=== PATIENT | male | born 1955 | race Caucasian/White ===

== ENCOUNTER → 2019-11-05 10:50 | Outpatient (BNVA) | payer MEDICARE, MEDICAID, SELFPAY | PROVIDERS: Visit Provider Registered Nurse | DX: M54.5 Low back pain (principal); G89.29 Other chronic pain; J30.1 Allergic rhinitis due to pollen; Z79.1 Long term (current) use of non-steroidal anti-inflammatories (NSAID); I10 Essential (primary) hypertension | CPT/HCPCS: 80053; 85025 ==

== ENCOUNTER → 2020-10-06 11:01 | Outpatient (BNVA) | payer MEDICARE, MEDICAID, SELFPAY | PROVIDERS: PCP Registered Nurse; Visit Provider Registered Nurse | DX: M54.5 Low back pain (principal); G89.29 Other chronic pain; F41.8 Other specified anxiety disorders; I10 Essential (primary) hypertension; J30.1 Allergic rhinitis due to pollen; E78.5 Hyperlipidemia, unspecified | CPT/HCPCS: 80053; 80061; 85025 ==

== ENCOUNTER → 2021-10-17 10:35 | Outpatient (BNVA) | payer MEDICARE, MEDICAID, SELFPAY | PROVIDERS: PCP Registered Nurse; Visit Provider Registered Nurse | DX: I10 Essential (primary) hypertension (principal); G40.909 Epilepsy, unspecified, not intractable, without status epilepticus; G89.29 Other chronic pain; F41.8 Other specified anxiety disorders; J30.1 Allergic rhinitis due to pollen; F17.210 Nicotine dependence, cigarettes, uncomplicated; J30.2 Other seasonal allergic rhinitis; Z53.20 Procedure and treatment not carried out because of patient's decision for unspecified reasons; E63.9 Nutritional deficiency, unspecified; Z71.3 Dietary counseling and surveillance | CPT/HCPCS: 80053; 80061; 85025 ==

== ENCOUNTER → 2023-04-10 10:16 | Outpatient (BNVA) | payer MEDICARE, MEDICAID, SELFPAY | PROVIDERS: PCP Registered Nurse; Visit Provider Registered Nurse | DX: L81.9 Disorder of pigmentation, unspecified (principal) | CPT/HCPCS: 88304 ==

== ENCOUNTER → 2023-05-09 10:01 | Outpatient (BNVA) | payer MEDICARE, MEDICAID, SELFPAY | PROVIDERS: PCP Registered Nurse; Visit Provider Registered Nurse | DX: E46 Unspecified protein-calorie malnutrition (principal) | CPT/HCPCS: 80053 ==

== ENCOUNTER → 2023-05-14 10:12 | Outpatient (BNVA) | payer MEDICARE, MEDICAID, SELFPAY | PROVIDERS: PCP Registered Nurse; Visit Provider Registered Nurse | DX: R73.09 Other abnormal glucose (principal); R73.9 Hyperglycemia, unspecified | CPT/HCPCS: 83036 ==

== ENCOUNTER 2023-06-30 00:21 | Emergency (ER) | payer MEDICARE, MEDICAID, SELFPAY ==
[2023-06-30 00:34] VITALS: BP 174/94; PULSE 74; RESP 16; O2SAT 98; BMI 12.7
--- NOTE | 2023-06-30 00:55 | ED_ITS ---
HPI - Male Genitourinary General: Chief complaint: Urogenital-Male Stated complaint: GROIN PAIN Time Seen by Provider: 06/30/23 00:34 Source: patient Mode of arrival: ambulatory Limitations: no limitations History of Present Illness: 67-year-old male states he has had a lef t inguinal hernia for years he states that it has been out today has not been able to reduce it is causing pain he states pain sharp in nature in his left groin rates the pain a 5 out of 10 denies any worsening proving factors denies any vomiting. Associated symptoms: Deny dysuria, nausea or vomiting Review of Systems Const: Denies: fever(s), chills, body aches or change in appetite ENMT: Denies: throat pain or dental pain Card: Denies: chest pain Resp: Denies: dyspnea GI: Reports: abdominal pain; Denies: nausea, vomiting or diarrhea : Denies: dysuria Musc: Denies: neck pain or back pain Skin/Breast: Denies: rash Neuro: Denies: headache(s) PFSH ED PFSH: Medical History Seizure disorder Seasonal allergies Depression with anxiety Essential hypertension Chronic lower back pain Social History Smoking and tobacco/nicotine status: current every day tobacco/nicotine user cigarettes Packs smoked per day: 1 Alcohol intake: never Substance/Drug Use: never Adopted: No Caregiver/support person: No Lives independently: Yes Do you think of yourself as: Straight/Heterosexual Current gender identity: Male Physical Exam Const: COMMON NORMALS: no acute distress, patient oriented x3 and healthy appearing HENMT: COMMON NORMALS: normocephalic and atraumatic HEAD & SCALP: normocephalic and atraumatic Neck/C-Spine: COMMON NORMALS: full ROM and supple Chest: COMMONS NORMALS: normal inspection of the chest Resp: COMMON NORMALS: normal respiratory effort Cardio: COMMON NORMALS: regular rate, regular rhythm and No murmurs present (Cardio) RATE: regular rate RHYTHM: regular rhythm GI: COMMON NORMALS: Normal to inspection, nondistended, normoactive bowel sounds present and Soft to palpation PALPATION: Yes Soft to palpation OTHER: Hernia noted to the left inguinal canal is tender to touch Extremity: COMMON NORMALS: normal to inspection and full ROM Neuro: COMMON NORMALS: patient oriented x3, moves all extremities and no focal motor deficits Psych: COMMON NORMALS: mental status grossly normal, Normal thought process present and cooperative THOUGHT PROCESS: Normal thought process present Skin: COMMON NORMALS: no rashes or lesions noted and no wounds GENERAL SKIN EXAM: no rashes or lesions noted Course Vital Signs: Vital signs: Vital Signs Temperature 97.6 F 06/30/23 01:18 Pulse Rate 78 06/30/23 01:18 Respiratory Rate 18 06/30/23 01:18 Blood Pressure 177/82 06/30/23 01:18 Pulse Oximetry 96 06/30/23 01:18 Oxygen Delivery Me thod Room Air 06/30/23 01:18 MDM - Male Medical Decision Making Patient presents with left inguinal hernia I was able to successfully reduce the hernia his pain is much improved we will get him follow-up with surgery he is stable for discharge. Medical Records I reviewed the patient's medical records. No radiology studies performed this visit Discharge Plan Discharge Patient Disposition: Home Clinical Impression: Inguinal hernia Qualifiers: Obstruction and gangrene presence: without obstruction or gangrene Laterality: unilateral Recurrence: recurrent Qualified Code(s): K40.91 - Unilateral inguinal hernia, without obstruction or gangrene, recurrent Condition: Stable Prescriptions: No Action mupirocin 2 % ointment 1 applic topical BID 10 Days Qty: 22 0RF levetiracetam [Keppra] 750 mg tablet 750 mg PO BID 30 Days Qty: 60 11RF cyclobenzaprine 5 mg tablet See Rx Instructions .ROUTE .COMPLEX Qty: 30 0RF Dose Instruction: TAKE 1 TO 2 TABLETS BY MOUTH AT BEDTIME NEEDED FOR MUSCLE SPASM Rx Instructions: TAKE 1 TO 2 TABLETS BY MOUTH AT BEDTIME NEEDED FOR MUSCLE SPASM montelukast 10 mg tablet See Rx Instructions .ROUTE .COMPLEX Qty: 90 0RF Dose Instruction: TAKE 1 TABLET BY MOUTH DAILY Rx Instructions: TAKE 1 TABLET BY MOUTH DAILY mirtazapine 45 mg tablet See Rx Instructions .ROUTE .COMPLEX Qty: 90 0RF Dose Instruction: TAKE 1 TABLET BY MOUTH DAILY Rx Instructions: TAKE 1 TABLET BY MOUTH DAILY propranolol 80 mg tablet See Rx Instructions .ROUTE .COMPLEX Qty: 180 0RF Dose Instruction: TAKE 1 TABLET BY MOUTH TWICE DAILY Rx Instructions: TAKE 1 TABLET BY MOUTH TWICE DAILY albuterol sulfate 90 mcg/actuation HFA aerosol inhaler See Rx Instructions .ROUTE .COMPLEX Qty: 8.5 0RF Dose Instruction: INHALE 1 PUFF BY MOUTH FOUR TIMES DAILY Rx Instructions: INHALE 1 PUFF BY MOUTH FOUR TIMES DAILY meloxicam 7.5 mg tablet See Rx Instructions .ROUTE .COMPLEX Qty: 180 0RF Dose Instruction: TAKE 1 TABLET BY MOUTH TWICE DAILY NEEDED FOR PAIN Rx Instructions: TAKE 1 TABLET BY MOUTH TWICE DAILY NEEDED FOR PAIN Discharge Orders: Discharge ED (Routine); Ordered 06/30/23 Ordered By: Estefania Alba Referrals: Jalen Leonard MD [Physician] - 1-3 days Farhad Blanchard FNP [Primary Care Provider] - Discharge Diet: Advance as tolerated Discharge Activity: Resume usual activity Patient Instructions: Inguinal Hernia (ED) Coding Level of Care Code ED Intern Architect for Kayleigh Canales
[2023-06-30] MEDS: LORazepam 2 mg/mL INJ 10 mL MDV 1 MG IVP (01:14)
[2023-06-30 01:17] VITALS: RESP 18; O2SAT 96
[2023-06-30] MEDS: morphine 4 mg/mL SDV 1 mL IVP (01:17)
[2023-06-30 01:18] VITALS: BP 177/82; PULSE 78; RESP 18; TEMP 36.4; O2SAT 96
[2023-06-30 01:52] VITALS: BP 161/89; PULSE 91; RESP 18; O2SAT 94
--- NOTE | 2023-07-04 11:12 | DCPLANNER ---
Message sent to General surgery for a follow up on a inguinal hernia.
== END 2023-06-30 01:55 | disposition home or self-care (01) ==
PROVIDERS: Emergency Provider Emergency Medicine; PCP Registered Nurse
DX: K40.91 Unilateral inguinal hernia, without obstruction or gangrene, recurrent (principal); I10 Essential (primary) hypertension; Z72.0 Tobacco use
CPT/HCPCS: 96374; 96375; 99284; J2060; J2270

== ENCOUNTER → 2023-07-11 11:14 | Outpatient (BNVA) | payer MEDICARE, SELFPAY | PROVIDERS: PCP Registered Nurse; Visit Provider Registered Nurse | DX: E63.9 Nutritional deficiency, unspecified (principal); J18.9 Pneumonia, unspecified organism; R91.1 Solitary pulmonary nodule; Z09 Encounter for follow-up examination after completed treatment for conditions other than malignant neoplasm; E46 Unspecified protein-calorie malnutrition; F17.210 Nicotine dependence, cigarettes, uncomplicated; K40.90 Unilateral inguinal hernia, without obstruction or gangrene, not specified as recurrent; K56.600 Partial intestinal obstruction, unspecified as to cause | CPT/HCPCS: 80053; 85025 ==

== ENCOUNTER → 2023-07-19 09:43 | Outpatient (BNVA) | payer MEDICARE, MEDICAID, SELFPAY | PROVIDERS: PCP Registered Nurse; Referring Provider Emergency Medicine; Visit Provider Surgery | DX: K40.20 Bilateral inguinal hernia, without obstruction or gangrene, not specified as recurrent (principal) | CPT/HCPCS: 99204 ==

== ENCOUNTER 2023-07-25 12:44 | Outpatient (CLI) | payer MEDICARE, MEDICAID, SELFPAY ==
--- NOTE | 2023-07-25 13:00 | CT_ITS ---
WS: [id number] CT chest w con* [id number] HISTORY: J18.9 - Pneumonia, unspecified organism TECHNIQUE: Axial imaging performed through the thorax. Coronal and sagittal reformats are submitted. All CT scans at [facility] use at least one of these dose optimization techniques: automated exposure control; mA and/or kV adjustment per patient size (includes targeted exams where dose is mat ched to clinical indication); or iterative reconstruction. CONTRAST: Omnipaque 350; 100 mL IV. DLP: 216.50 mGy.cm COMPARISON: None available. Lungs and central airway: Severe pulmonary hyperinflation. Centrilobular and paraseptal emphysema. Ir regular opacifications are noted in the upper lung serrano. There is some distortion of the tissues an d groundglass attenuation in the upper lobes. Although no discrete mass additional evaluation will be necessary. There is mild pleural thickening along the superior RIGHT major fissure. Focal linear sca r medial RIGHT lower lobe. Pleura: Normal. No pleural effusion. Heart and pericardium: Normal size heart with no pericardial effusion. Mediastinum and siomara: Very mildly prominent lymphoid tissue. No adenopathy. Vessels: Ectatic thoracic aorta. Mild ectasia at 3.1 cm. No aneurysm. Normal sized pulmonary artery. Chest wall and lower neck: Patient is cachectic. Very little body fat. Upper abdomen: Moderate suprarenal aortic calcification. There are several low-attenuation masses wit hin the liver consistent with cysts. No solid mass and no bile duct dilatation. Osseous structures: No destructive process. IMPRESSION: 1. Severe emphysema. 2. Bilateral upper lobe areas of groundglass attenuation with scarring and irregular opacifications. Pulmonary findings may all be related to patient's chronic lung disease and long-term scarring. Pranav y neoplastic changes should be considered. Recommend follow-up chest CT in 3 to 4 months. 3. No adenopathy identified. There are a few small mediastinal and hilar lymph nodes which are not e nlarged. 4. Mild ectatic thoracic aorta. 5. Hepatic cyst. 6. No adrenal mass.
[2023-07-25] MEDS: iohexol 350 mg/mL 500 mL Btl (per mL) IV (13:23)
== END 2023-07-25 12:45 | disposition home or self-care (01) ==
LOC: RAD 12:45
PROVIDERS: PCP Registered Nurse; Visit Provider Registered Nurse
DX: J18.9 Pneumonia, unspecified organism (principal); R91.1 Solitary pulmonary nodule; J43.2 Centrilobular emphysema; R91.8 Other nonspecific abnormal finding of lung field; I77.810 Thoracic aortic ectasia; K40.20 Bilateral inguinal hernia, without obstruction or gangrene, not specified as recurrent; F17.210 Nicotine dependence, cigarettes, uncomplicated
CPT/HCPCS: 71260; 99204; Q9967

== ENCOUNTER → 2023-08-03 10:13 | Outpatient (BNVA) | payer MEDICARE, MEDICAID, SELFPAY | PROVIDERS: PCP Registered Nurse; Visit Provider Family Medicine | DX: Z01.818 Encounter for other preprocedural examination (principal); Z79.899 Other long term (current) drug therapy | CPT/HCPCS: 80053; 84134; 85025 ==

== ENCOUNTER 2023-08-20 06:16 | Day surgery (SDC) | payer MEDICARE, MEDICAID, SELFPAY ==
[2023-08-20] VITALS (14 sets, daily range): BP systolic 140–181; BP diastolic 72–99; PULSE 67–95; RESP 15–22; TEMP 36.2–36.6; O2SAT 96–100; BMI 13.3
--- NOTE | 2023-08-20 06:46 | ECG_ITS ---
[facility] Test Date: 2023-08-20 Pat Name: Frank Britton Department: Room: Gender: Male Guest Service Supervisor: : 1955 Requested By: Jalen Dacosta Order Number: [id number] Kervin MD: Dharmesh Wong M.D. Measurements Intervals [place] Rate: 65 P: 84 [place]: 137 QRS: 72 QRSD: 106 T: 77 QT: 379 QTc: 395 Interpretive Statements SINUS RHYTHM No previous ECG available for comparison Electronically Signed On 08-20-2023 14:23:46 CDT by Dharmesh Wong M.D. [id number]
[2023-08-20] MEDS: sodium chloride 0.9% 1,000 ML 30 ML IV (06:51)
--- NOTE | 2023-08-20 06:58 | P.HPUD_ITS ---
Surgery/Procedure H&P Update DATE OF PROCEDURE: August 20, 2023 DATE H&P PERFORMED: 07/25/23 H&P UPDATE INFORMATION: I have reviewed H&P completed within last 30 days, I have examined patient prior to procedure, No changes to prior documentation and [place] [facility] [place] indicated PREOP DIAGNOSIS: Bilateral inguinal hernia PLANNED PROCEDURE: Operation Date: 08/20/23 08:05 Proposed Procedures p 34389 x2 lap repair of bilaeral inguinal hernia with mesh K40.20, possible open(Bilateral) - Jalen Leonard MD
[2023-08-20] MEDS: vancomycin 1,000 MG in sodium chloride 0.9% 250 ML 200 MG IV (07:32)
--- NOTE | 2023-08-20 07:59 | ANES.PREANE2 ---
Pre-Anesthetic Assessment Height/Weight: Height 1.78 m Weight 42.184 kg Temp Pulse Resp BP Pulse Ox O2 Del Method 97.2 F L 67 18 145/91 100 Room Air 08/20/23 06:37 08/20/23 06:37 08/20/23 06:37 08/20/23 06:37 08/20/23 06:37 08/20/23 06:37 Preop Diagnosis: Bilateral inguinal hernia Operation Date: 08/20/23 08:05 Proposed Procedures p 95778 x2 lap repair of bilaeral inguinal hernia with mesh K40.20, possible open(Bilateral) - Jalen Leonard MD Familial anesthetic complications: None Was Beta Domi taken within 24 hours: Yes Was Clonidine taken within 24 hours: N/A Last intake: Intake Last Liquid Date 08/19/23 Last Liquid Time 20:30 Last Solid Date 08/19/23 Last Solid Time 20:00 Social Tobacco and No alcohol encouraged smoking cessation and f/u w/ PCP for further guidance Exam alert, oriented x 3, clear to auscultation bilaterally and regular rate & rhythm Airway Mallampati: Class III Dentition: full Comments: Comments: small mouth opening, full singh Pulmonary Chronic Obstructive Pulmonary Disease (emphysema) CV/HEM Hypertension [facility] [place] underweight Neuropsych Seizure (keppra) subdural hemotoma 2014 resolved Anesthetic Plan ASA status: 3 Anesthesia: General Risk of > 500 ml blood loss (7ml/kg in children): No Medications/Allergies Home Medications Medication Instructions Recorded Confirmed Last Taken Type levetiracetam 750 mg tablet 750 mg PO BID 30 days #60 tabs 10/17/21 08/17/23 08/20/23 05:30 Rx (Keppra) albuterol sulfate 90 mcg/actuation 1 puff inhalation QID 08/17/23 08/17/23 08/19/23 History aerosol inhaler meloxicam 7.5 mg tablet 7.5 mg PO BID PRN Pain 08/17/23 08/17/23 08/19/23 History mirtazapine 45 mg tablet 45 mg PO DAILY 08/17/23 08/17/23 08/19/23 History montelukast 10 mg tablet 10 mg PO DAILY 08/17/23 08/17/23 08/19/23 History (Singulair) propranolol 80 mg tablet 80 mg PO BID 08/17/23 08/17/23 08/20/23 05:30 History cyclobenzaprine 5 mg tablet 5 - 10 mg PO BEDTIME PRN Spasms 08/20/23 08/20/23 08/16/23 History Allergies Allergy/AdvReac Type Severity Reaction Status Date / Time chocolate flavor Allergy Unknown Verified 08/17/23 11:56 Penicillins Allergy Unknown Verified 08/17/23 11:56 Current Medications Generic Name Dose Route Start Last Admin Trade Name Freq PRN Reason Stop Dose Admin Sodium Chloride 1,000 mls @ 30 mls/hr 08/20/23 06:30 08/20/23 06:51 Sodium Chloride 0.9% IV 08/21/23 06:29 30 mls/hr .Q24H GENIE Administration PFSH Anesthesia Medical History History of subdural hematoma on Keppra Seizure disorder Seasonal allergies Depression with anxiety Essential hypertension Chronic lower back pain Social History Smoking and tobacco/nicotine status: current every day tobacco/nicotine user cigarettes Packs smoked per day: 1 Alcohol intake: never Substance/Drug Use: never Adopted: No Caregiver/support person: No Lives independently: Yes Do you think of yourself as: Straight/Heterosexual Current gender identity: Male Data Anesthesia Cardiac Studies: No Data to Display
--- NOTE | 2023-08-20 10:22 | P.OP_ITS ---
Operative Report Date of procedure: August 20, 2023 Pre-op diagnosis: Bilateral inguinal hernias Post-op diagnosis: Bilateral direct and indirect inguinal hernias Post-op findings: On the left side there was a large left indirect inguinal hernia, there was also a right inguinal hernia containing a small amount of fat and peritoneal. On the right side there was a small indirect inguinal hernia and there was a fat- containing direct inguinal hernia. Procedure done: Laparoscopic bilateral inguinal hernia repair with mesh Implants: Bard 3D max left and right mesh Specimens removed/disposition: none Surgeon: Jalen Leonard MD Fire Extinguisher Installer: DANYELL OR Staff Estimated blood loss: 5 Complications: None apparent Brief History: 67-year-old male who presented to my clinic complaining of bilateral inguinal hernias after discussion of all risk benefits we decided to proceed with laparoscopic and possible open repair. Procedure: Patient was brought into the OR. She was placed in a supine position. General esthesia was given. Gamez catheter was inserted. The abdomen was prepped and draped in the usual sterile fashion and timeout was conducted. I then made a 1.5 cm infraumbilical incision, the incision was deepened into the subcutaneous tissue with electrocautery and the anterior rectus sheath was exposed. The anterior rectus sheath on the right side was then opened with electrocautery, the rectus muscle was retracted laterally exposing the retrorectus space. I then proceeded to slide a Spacemaker into the retrorectus space, the Spacemaker was advanced carefully to the level of the pubic bone. Under direct visualization the Spacemaker balloon was inflated developing the peritoneal space bilaterally. the Spacemaker was removed and a 2 mm balloon trocar was placed. Low pressure and low flow insufflation was initiated, additional 5 mm trocars were placed under direct visualization in the suprapubic and infraumbilical positions. I then proceeded to focus on the left inguinal region. I dissected the Aiden ligament from the midline all the way down to the femoral space, I then proceeded to bluntly dissect the lateral the space of Borgess. Once the dissection was clear I then proceeded to evaluate the direct and indirect space, there was a direct inguinal hernia, the hernia was reduced. I then proceeded to evaluate the indirect space there was a large indirect hernia, I carefully reduced the hernia sac with blunt dissection taking careful consideration of preserving the vas deferens and the testicular vessels. Once the peritoneum was reduced I was able to pull down the peritoneum about 4 to 5 cm from the internal ring. A medium size left-sided Bard 3D max mesh was then placed covering the femoral direct and indirect spaces and it was fixed to the Aiden's ligament with a single absorbable tack. I then proceeded to dissect the right side, I initiated by clearing the Aiden's ligament up to the femoral space, no femoral hernia was encountered, I then developed a lateral space Borgess, once the space was developed I proceeded to evaluate the indirect and direct space. There was a fat-containing direct inguinal hernia that was easily reduced. I then proceeded to dissect the indirect space there was a small indirect hernia, this was dissected from the testicular vessels and vas deferens and reduced. I was able to reduce the peritoneum about 5 cm from the internal ring. I then placed a medium size right-sided mesh, the mesh was placed covering the femoral direct and indirect spaces and was fixed to the Aiden's ligament with a single absorbable tacker. The preperitoneal space was then deflated on the radial sterilization ensuring that the mesh will lie in an appropriate fashion. The trocars were removed. The anterior rectus sheath was closed with #0 Vicryl. Hemostasis was verified. The wounds were closed in layers using #3-0 Vicryl for the subcutaneous tissue and #4 Monocryl for the skin. Dermabond was applied. At the end of the procedure all counts were correct. The patient tolerated well the procedure and was transferred to PACU in stable condition. Gamez catheter was removed before the patient was awakened.
[2023-08-20] MEDS: oxyCODONE 5 mg IR Tab/Cap PO (11:37)
--- NOTE | 2023-08-20 13:00 | ANE.PACU2 ---
Inpatient post-anesthesia follow up: Airway intact: Yes Vital signs: Temperature 98 F Pulse Rate 74 Respiratory Rate 18 Blood Pressure 154/83 Pulse Oximetry 99 Oxygen Delivery Me thod Room Air Oxygen Flow Rate 6 Fraction of Inspir ed Oxygen Hydration adequate: Yes Nausea and vomiting: No Pain level: 1 Mental status: Baseline
== END 2023-08-20 13:00 | disposition home or self-care (01) ==
PROVIDERS: PCP Registered Nurse; Visit Provider Surgery
PROC: (CPT 49650; principal; 2023-08-20 07:55)
DX: K40.20 Bilateral inguinal hernia, without obstruction or gangrene, not specified as recurrent (principal); J44.9 Chronic obstructive pulmonary disease, unspecified; I10 Essential (primary) hypertension
CPT/HCPCS: 49650; 51702; 93005; J1100; J2405; J2704; J2710; J3010; J3370; J3490; J7030; J7050

== ENCOUNTER → 2023-09-04 10:56 | Outpatient (BNVA) | payer MEDICARE, MEDICAID, SELFPAY | PROVIDERS: PCP Registered Nurse; Visit Provider Surgery | DX: K40.20 Bilateral inguinal hernia, without obstruction or gangrene, not specified as recurrent (principal); Z98.890 Other specified postprocedural states | CPT/HCPCS: 99024 ==

== ENCOUNTER → 2025-03-17 13:22 | Outpatient (BNVA) | payer MEDICARE, MEDICAID, SELFPAY | PROVIDERS: PCP Registered Nurse; Visit Provider Registered Nurse | DX: I10 Essential (primary) hypertension (principal); E46 Unspecified protein-calorie malnutrition | CPT/HCPCS: 80048; 82607; 85025 ==